=== PATIENT | male | born 1945 | race Caucasian/White ===

== ENCOUNTER → 2019-01-07 | Outpatient (CLI) | payer MEDICARE, OTHER, SELFPAY | END | disposition home or self-care (01) | LOC: LAB 10:42 | PROVIDERS: Family Provider Family Medicine; PCP Family Medicine; Referring Provider Nurse Practitioner Adult Health; Visit Provider Nurse Practitioner Adult Health | DX: R97.20 Elevated prostate specific antigen [PSA] (principal) | CPT/HCPCS: 36415; 84153; G0103 ==

== ENCOUNTER → 2019-02-24 | Outpatient (CLI) | payer MEDICARE, OTHER, SELFPAY ==
--- NOTE | 2019-02-24 | IMM_PTH ---
PATIENT: RADHA RASMUSSEN LOC: [facility] U#:[id number] AGE/SX: 73/M ROOM: RE02/24/[address]: Dr. Scott Quintero MD : 1945 BED: DIS: 02/24/2019 SPEC #: [id number] RECD: 02/26/19 12:41 STATUS: HECTOR REQ #: [id number] ANDREA: 02/24/19 00:[address]: Scott Quintero DEPT: IMMUNOHISTOCHEMISTRY RECD BY: Ale Saeed ENTERED: 02/26/19 12:43 SP TYPE: IMMUNO OTHR DR: Dr. Bernard Yoo MD Tissues: A - PROSTATE RIGHT B - PROSTATE RIGHT C - PROSTATE RIGHT D - PROSTATE LEFT E - PROSTATE LEFT F - PROSTATE LEFT Procedures: 34BE12 (add) P40 (add) 34BE12 (initial) PHYSICIAN & INSTITUTION [place] [address] SPECIMEN INFORMATION: Tissue Source: A - Right apex, B - Right mid, C - Right base, D - Left apex, E - Left mid, F - Left base Clinical Info: Elevated PSA Specimen Number: [id number] A-F CPT code: 81426, 86292 x11 METHODOLOGY: Deparaffinized sections of prefer/formalin-fixed tissue or PAP/DQ stained slides are incubated with monoclonal/polyclonal antibodies/oligonucleotide probes. Localization is made via biotin free immunoperoxidase method. Appropriate controls are performed and reacted as expected. Results on target cell population are indicated in the following table: RESULTS: ANTIBODY / CLONE RESULT Block A P40 (BC28) negative 34BE12 (34BE12) negative Block B P40 (BC28) negative 34BE12 (34BE12) negative Block C P40 (BC28) negative 34BE12 (34BE12) negative Block D P40 (BC28) positive 34BE12 (34BE12) positive Block E P40 (BC28) negative 34BE12 (34BE12) negative Block F P40 (BC28) positive 34BE12 (34BE12) positive These tests were developed and their performance characteristics determined by [facility]. They may not have been cleared or approved by the U.S. Food and Drug Administration. The FDA has determined that such clearance or approval is not necessary. INTERPRETATION: A. Right prostate, apex, core biopsy: Adenocarcinoma. B. Right prostate, mid, core biopsy: Adenocarcinoma. C. Right prostate, base, core biopsy: Adenocarcinoma. D. Left prostate, apex, core biopsy: Consistent with high-grade prostatic intraepithelial neoplasia. E. Left prostate, mid, core biopsy: Adenocarcinoma. F. Left prostate, base, core biopsy: Consistent with high-grade prostatic intraepithelial neoplasia. AM:micah 02/27/19
--- NOTE | 2019-02-24 08:00 | PROSBIL_PTH ---
PATIENT: RADHA RASMUSSEN LOC: [facility] U#:[id number] AGE/SX: 73/M ROOM: RE02/24/[address]: Dr. Scott Quintero MD : 1945 BED: DIS: 02/24/2019 SPEC #: [id number] RECD: 02/24/19 18:26 STATUS: HECTOR REAgnes #: [id number] ANDREA: 02/24/19 08:[address]: Scott Quintero DEPT: SURGICAL PATHOLOGY RECD BY: Salvador Garcia ENTERED: 02/25/19 08:27 SP TYPE: PROST BX TRINH DR: Dr. Bernard Yoo MD Tissues: A - PROSTATE RIGHT B - PROSTATE RIGHT C - PROSTATE RIGHT D - PROSTATE LEFT E - PROSTATE LEFT F - PROSTATE LEFT Procedures: PROSTATE BX HEADER OPERATION: Prostate biopsy PRE-OP DIAGNOSIS: Elevated PSA R97.20 TISSUE SUBMITTED: A - Right apex, B - Right mid, C - Right base, D - Left apex, E - Left mid, F - Left base MICROSCOPIC DIAGNOSIS A. Right prostate, apex, core biopsy: Adenocarcinoma: Greene grade: 6 (3+3) Cores involved: 2 out of 2 Tissue involved: 3% Greatest tumor length: 2 mm See comment. B. Right prostate, mid, core biopsy: Adenocarcinoma: Sumi grade: 6 (3+3) Cores involved: 1 out of 2 Tissue involved: 1% Greatest tumor length: 0.5 mm Focal high-grade prostatic intraepithelial neoplasia (HGPIN). See comment. C. Right prostate, base, core biopsy: Adenocarcinoma: Greene grade: 6 (3+3) Cores involved: 1 out of 2 Tissue involved: <1% Greatest tumor length: 0.3 mm Focal high-grade prostatic intraepithelial neoplasia (HGPIN). See comment. D. Left prostate, apex, core biopsy: Focal high-grade prostatic intraepithelial neoplasia (HGPIN). See comment. E. Left prostate, mid, core biopsy: Adenocarcinoma: Sumi grade: 6 (3+3) Cores involved: 2 out of 2 Tissue involved: 2% Greatest tumor length: 2.2 mm (discontinuous) Focal high-grade prostatic intraepithelial neoplasia (HGPIN). See comment. F. Left prostate, base, core biopsy: Focal high-grade prostatic intraepithelial neoplasia (HGPIN). See comment. AM:micah 02/26/19 COMMENT A-F. Immunohistochemistry ([id number]) supports the above diagnosis. Case has been reviewed in consultation with Dr. Menendez who concurs with the above diagnosis. [id number] MICROSCOPIC DESCRIPTION Slides are reviewed. GROSS DESCRIPTION A - Received is one container designated prostate, right apex. The specimen consists of two elongated fragments of light fitzpatrick-white soft tissue each measuring 1 cm in length and 0.1 cm in diameter. The specimen is totally submitted in one cassette. B - Received is one container designated prostate, right mid. The specimen consists of two elongated fragments of light fitzpatrick-white soft tissue each measuring 1 cm in length and 0.1 cm in diameter. The specimen is totally submitted in one cassette. C - Received is one container designated prostate, right base. The specimen consists of two elongated fragments of light fitzpatrick-white soft tissue each measuring 1 cm in length and 0.1 cm in diameter. The specimen is totally submitted in one cassette. D - Received is one container designated prostate, left apex. The specimen consists of two elongated fragments of light fitzpatrick-white soft tissue each measuring 1 cm in length and 0.1 cm in diameter. The specimen is totally submitted in one cassette. E - Received is one container designated prostate, left mid. The specimen consists of two elongated fragments of light fitzpatrick-white soft tissue each measuring 1 cm in length and 0.1 cm in diameter. The specimen is totally submitted in one cassette. F - Received is one container designated prostate, left base. The specimen consists of two elongated fragments of light fitzpatrick-white soft tissue each measuring 1 cm in length and 0.1 cm in diameter. The specimen is totally submitted in one cassette. / AM:micah 02/25/19 TC:0 CPT: G0146 ADDENDUM ADDENDUM ADDENDUM ADDENDUM ADDENDUM ADDENDUM ADDENDUM ADDENDUM 05/26/2019 10:45 ADDENDUM 05/26/2019 10:45 ADDENDUM 05/26/2019 10:45 ADDENDUM 05/26/2019 10:45 ADDENDUM 05/26/2019 10:45 An order for Oncotype testing was received from Dr. Quintero. This necessitated case review, block and slide selection by pathologist at [facility]. Genomic Prostate Score = 31 Results of the complete Oncotype testing ([employer] report) are viewable in EMR under: Reports - Pathology - Lab Pathology Report, Scanned.
== END | disposition home or self-care (01) ==
LOC: LABSPEC 16:43
PROVIDERS: Family Provider Family Medicine; PCP Family Medicine; Referring Provider Urology; Visit Provider Urology
DX: C61 Malignant neoplasm of prostate (principal)
CPT/HCPCS: 88305; 88341; 88342; G0416

== ENCOUNTER → 2019-04-28 10:09 | Outpatient (CLI) | payer MEDICARE, OTHER, SELFPAY | PROVIDERS: Family Provider Family Medicine; PCP Family Medicine; Referring Provider Urology; Visit Provider Urology | DX: C61 Malignant neoplasm of prostate (principal) | CPT/HCPCS: 36415; 84153 ==

== ENCOUNTER 2019-07-04 12:41 | Day surgery (SDC) | payer MEDICARE, OTHER, SELFPAY ==
[2019-07-04] MEDS: Lactated Ringers 1,000 ML 100 ML IV (12:50)
[2019-07-04 13:07] VITALS: PULSE 64; RESP 15; TEMP 36.7; O2SAT 100; BMI 29.4
[2019-07-04] MEDS: Cefazolin 2 GM in 0.9% Normal Saline 100 ML IV (14:49)
--- NOTE | 2019-07-04 15:15 | DCINST_ITS ---
Discharge Diet: Light diet - advance as tolerated Discharge Activity: Return to Normal Activity Call your doctor if your incision/area has: Sudden Increased Bleeding Call your doctor if you observe: Fever of 101 or Higher Allergies/Adverse Reactions: Allergies azithromycin [From Zithromax Z-Misha] Allergy (Verified 07/04/19 12:59) Rash Penicillins [PCN] Allergy (Verified 07/04/19 12:59) Rash Medications to take at Discharge Atenolol [Tenormin (beta Sal)] 25 mg PO DAILY 06/27/19 Cinnamon Bark [Cinnamon] 500 mg PO DAILY 06/27/19 Cyanocobalamin (Vitamin B-12) [Vitamin B-12] 1,000 mcg PO DAILY 06/27/19 Ezetimibe [Zetia] 10 mg PO DAILY 06/27/19 Triamterene 12.5 mg PO DAILY 06/27/19 Primary Care Physician: Bernard Yoo MD [Primary Care Provider] - Test Results: Test results from this visit will be discussed in further detail at your follow- up appointment, if applicable.
--- NOTE | 2019-07-04 15:15 | OP.PCM_ITS ---
Report of Operation Date of Procedure: 07/04/19 Pre-Operative Diagnosis: Prostate cancer Post-Operative Diagnosis: The same Surgery/Procedure Performed:: Transrectal ultrasound guided placement of gold fiducial markers for radiation therapy, transrectal ultrasound-guided placement of spacer organ at risk gel matrix. Description of Surgical Findings:: 74-year-old male was taken back to the operating room after smooth induction of anesthesia he was placed in dorsolithotomy position. The penis and scrotum were pulled up out of the perineal field perineum was prepped and draped in usual sterile fashion, I then placed the ultrasound probe into the rectum performed ultrasonography of the prostate identified the prostate itself seminal vesicles the fat plane between the rectum and the prostate Denonvilliers' fascia, we then used a gold markers and advanced the needle into the prostate and placed the first zipper machine operator in the base of the prostate and then we placed a second zipper machine operator in the right base of the prostate and place a third zipper machine operator in the left apex of the prostate. We then prepared the spacer organ at risk gel matrix in the back table using staff development coordinator rn's instruction, I then used a finder needle with injectable saline to place a needle between the rectum and Denonvilliers' fascia between the prostate and the rectum. Once the needle was advanced into the space and the obvious fascia I injected some injectable saline and had a spacing between the rectum and the prostate I then injected the gel matrix over the course of 10 seconds very slowly until the gel matrix the prostate off the rectum very nicely. Is a very nice separation with good space between the rectum and the prostate and then pulled out the needle. The patient was cleaned taken out of stirrups and and transferred the PACU in good condition he will proceed with radiation therapy. Type of Anesthesia:: General Drains: none - Admit VTE Documentation VTE Present on Admission: No VTE Mechan Device Prophylaxis: SCD's
[2019-07-04] MEDS: Lactated Ringers 1,000 ML 75 ML IV (15:20)
[2019-07-04 15:24] VITALS: BP 128/65; BP 159/82; PULSE 62; RESP 16; TEMP 37.2; O2SAT 93
[2019-07-04 15:30] VITALS: BP 147/67; BP 159/82; PULSE 60; RESP 16; O2SAT 92
[2019-07-04 15:45] VITALS: BP 159/82; BP 160/76; PULSE 55; RESP 16; O2SAT 92
[2019-07-04 15:50] VITALS: BP 159/82; BP 174/75; PULSE 55; RESP 16; TEMP 36.8; O2SAT 93
[2019-07-04 16:37] VITALS: BP 159/82; BP 166/67; PULSE 58; RESP 18; TEMP 36.3; O2SAT 94
== END 2019-07-04 17:01 | disposition home or self-care (01) ==
LOC: SDC 12:41
PROVIDERS: Family Provider Family Medicine; PCP Family Medicine; Referring Provider Urology; Visit Provider Urology
PROC: (CPT 55874; principal; 2019-07-04 14:25)
DX: C61 Malignant neoplasm of prostate (principal); M17.0 Bilateral primary osteoarthritis of knee; I10 Essential (primary) hypertension; E78.00 Pure hypercholesterolemia, unspecified; Z79.899 Other long term (current) drug therapy; Z87.891 Personal history of nicotine dependence
CPT/HCPCS: 00902; 55876; 76942; J7120; J2405

== ENCOUNTER → 2019-07-17 10:45 | Outpatient (CLI) | payer MEDICARE, OTHER, SELFPAY ==
[2019-07-04 13:07] VITALS: BMI 29.4
[2019-07-17 11:10] LABS: Absolute Lymphocyte Count 1.81 X10^3/uL (0.83-4.51); Basophil# 0.03 X10^3/uL; Basophil% 0.5 % (0-1); Eosinophil# 0.14 X10^3/uL; Eosinophils% 2.4 % (0-5); Hematocrit 44.5 % (40-54); Hemoglobin 14.8 g/dL (13.0-16.5); Lymphocyte # 1.81 X10^3/ul (4.0); Lymphocyte % 31.2 % (19-41); Mean Corp Hgb Conc 33.3 g/dL (32-36); Mean Corpuscular Volume 96.3 fL (80-94); Mean Platelet Vol. 11.4 fl (6.2-12.0); Monocyte# 0.78 X10^3/uL; Monocyte% 13.4 % (0-10); NRBC Flagged by Analyzer 0 % (0-5); Neutrophil % 51.6 % (47-70); Platelet Count 136 K/mm3 (150-450); RBC Distribution Width CV 12.8 % (11.6-14.6); RBC Distribution Width SD 45.2 fl (35.1-43.9); Red Blood Count 4.62 M/mm3 (4.6-6.2); White Blood Count 5.8 K/mm3 (4.4-11.0)
[2019-07-17 11:46] LABS: Creatinine, Serum 1.09 mg/dL (0.70-1.30); EST Glomerular Filtration Rate 70 mL/min (>60); Est Glom Filt Rate - Afr Amer 85 mL/min (>60)
== END ==
PROVIDERS: Family Provider Family Medicine; PCP Family Medicine; Referring Provider Radiology Radiation Oncology; Visit Provider Radiology Radiation Oncology
DX: Z01.818 Encounter for other preprocedural examination (principal); C61 Malignant neoplasm of prostate
CPT/HCPCS: 36415; 82565; 84153; 85025

== ENCOUNTER → 2019-07-18 10:57 | Outpatient (CLI) | payer MEDICARE, OTHER, SELFPAY ==
[2019-07-04 13:07] VITALS: BMI 29.4
--- NOTE | 2019-07-18 11:03 | CT_ITS ---
STUDY: CT PELVIS WITH CONTRAST REASON FOR EXAM: Male, 74 years old. PROSTATE PLANNING RADIATION DOSAGE (If Supplied By Facility): CTDIvol = ( 24.62 ) mGy, DLP = ( 782.61 ) mGycm TECHNIQUE: Transaxial imaging of the pelvis was performed with oral contrast. 100 ML Isovue 370 was administered intravenously. Individualized dose optimization techniques were used for this CT. COMPARISON: None. FINDINGS: Normal urinary bladder. No bladder wall thickening or intraluminal masses. No diverticula of the bladder. Visualized prostate gland and maximally measures 5.80 cm in diameter. The peripheral prostate capsule appears grossly intact. Multiple postsurgical or brachytherapy metallic densities are seen in the prostate gland. Grossly unremarkable seminal vesicles. No pelvic wall lymphadenopathy seen. Penile urethral implant noted. Normal visualized small intestine. There are multiple colonic diverticula of the sigmoid colon consistent with chronic diverticulosis. There is no pelvic fluid. There is no pelvic lymphadenopathy or mass lesion. Normal visualized pelvic arteries. Normal abdominal wall. Left hip prosthesis is present. No visualized aggressive or acute osseous abnormality seen. CT/CT Pelvis W/CONT Therapy IMPRESSION: 1. The peripheral prostate capsule appears grossly intact. Multiple postsurgical or brachytherapy metallic densities are seen in the prostate gland. 2. Grossly unremarkable seminal vesicles. No pelvic wall lymphadenopathy seen. Electronically Signed: Gonzalo Lira MD at 14:48 EST , Service support ,
== END ==
PROVIDERS: Family Provider Family Medicine; PCP Family Medicine; Referring Provider Radiology Radiation Oncology; Visit Provider Radiology Radiation Oncology
DX: C61 Malignant neoplasm of prostate (principal)
CPT/HCPCS: 51600; 72193; Q9967

== ENCOUNTER → 2025-06-24 | Outpatient (CLI) | payer MEDICARE, OTHER, SELFPAY ==
--- NOTE | 2025-06-24 15:34 | NEURO_ITS ---
NCS and/or EMG Patient Report Ordering Doctor: Mery Wiley NP DATE OF SERVICE: 06/24/25 Quinton presents for electrodiagnostic testing of the lower limbs. He reports numbness and tingling in both legs, worse on the right side. Electrodiagnostic findings: Peroneal motor nerve demonstrates normal distal late ncy bilaterally with reduced amplitude and reduced conduction velocity. Tibial motor amplitude is reduced bilaterally. Absent sensory responses. Prolonged right tibial and left peroneal F?wave. Absent right peroneal and left tibial F?wave. Prolonged H?reflex bilaterally. Needle EMG testing was performed the lower limbs. All muscles tested showed no active denervation with normal motor unit action potentials. Electrodiagnostic impression: This is an abnormal study in the lower limbs 1. 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 Multi Select Codes Neurology Neurology Interp Codes: 14575-50 Musc test done w/n test comp (interp) (2) and 34546-81 Nrv cndj test 9-10 studies (interp)
== END | disposition home or self-care (01) ==
LOC: PSN 11:50
PROVIDERS: Referring Provider Nurse Practitioner Family; Visit Provider Nurse Practitioner Family
DX: G57.93 Unspecified mononeuropathy of bilateral lower limbs (principal)
CPT/HCPCS: 95886; 95911